=== PATIENT | male | born 1955 | race Caucasian/White ===

== ENCOUNTER 2016-11-07 09:51 | Emergency (ER) | payer BC ==
[2016-11-07] MEDS ORDERED: LABETALOL SYRINGE 5 MG/ML IVP STA ×2 (13:14→14:11)
--- NOTE | 2016-11-07 13:17 | ED ---
Recheck HPI - General Chief Complaint: Recheck/Abnormal Lab/Rx Stated Complaint: HTN Time Seen by Provider: 11/07/16 12:46 Source: patient, RN notes reviewed Mode of arrival: ambulatory Limitations: no limitations - History of Present Illness Initial Comments: Patient is a 61-year-old male to the emergency room for blood pressure recheck. Patient states he has a history of high blood pressure. Patient states he takes Cozaar 50 mg once a day. Patient states he did take his medication this morning. Patient states that he was getting his blood pressure retaken today at the clinic for a recheck. Patient states that his blood pressure was highly elevated so he was advised to go straight to the emergency room. Patient denies headache, changes in vision, dizziness, nausea, chest pain, shortness of breath. Patient states he was recently treated for pneumonia. Patient denies any cough or persisting symptoms from his pneumonia. - Related Data Home Medications Medication Instructions Recorded Confirmed Losartan [Cozaar] 50 mg PO DAILY 11/07/16 11/07/16 Allergies Allergy/AdvReac Type Severity Reaction Status Date / Time Penicillins Allergy Rash/Hives Verified 11/07/16 13:01 Review of Systems ROS Statement: Those systems with pertinent positive or pertinent negative responses have been documented in the HPI. ROS Other: All systems not noted in ROS Statement are negative. Past Medical History Past Medical History: Hypertension History of Any Multi-Drug Resistant Organisms: None Reported Past Surgical History: Orthopedic Surgery Additional Past Surgical History / Comment(s): knee Past Psychological History: No Psychological Hx Reported Smoking Status: Never smoker Past Alcohol Use History: Occasional Past Drug Use History: None Reported General Exam - General Exam Comments Initial Comments: Sitting in exam room in no acute distress. Limitations: no limitations General appearance: alert, in no apparent distress Head exam: Present: atraumatic, normocephalic, normal inspection Eye exam: Present: normal appearance ENT exam: Present: normal exam Neck exam: Present: normal inspection Respiratory exam: Present: normal lung sounds bilaterally. Absent: respiratory distress Cardiovascular Exam: Present: regular rate, normal rhythm, normal heart sounds Extremities exam: Present: normal inspection Back exam: Present: normal inspection Neurological exam: Present: alert, oriented X3, CN II-XII intact, normal gait Psychiatric exam: Present: normal affect, normal mood Skin exam: Present: warm, dry, intact, normal color. Absent: rash Course Vital Signs 11/07/16 11/07/16 11/07/16 10:20 13:18 14:09 Temperature 98.6 F Pulse Rate 93 78 74 Respiratory 16 18 18 Rate Blood Pressure 209/106 221/113 211/122 O2 Sat by Pulse 94 L 95 95 Oximetry 11/07/16 11/07/16 11/07/16 14:48 15:42 16:49 Temperature Pulse Rate 75 71 74 Respiratory 18 18 17 Rate Blood Pressure 204/129 186/117 190/110 O2 Sat by Pulse 97 100 Oximetry 11/07/16 17:22 Temperature 98.7 F Pulse Rate Respiratory Rate Blood Pressure O2 Sat by Pulse Oximetry Medical Decision Making - Medical Decision Making Patient is a 61-year-old male presents emergency room for evaluation of high blood pressure. Patient not complaining of any symptoms. Advised patient to increase his current blood pressure medications to twice a day. Advised patient to follow-up with his primary care provider tomorrow. Patient states he understands everything that was discussed with him. Return parameters discussed. Case discussed with Dr. Silverio. 11/07/16 15:06 Sinus rhythm with first-degree AV block with premature supraventricular complexes, ventricular rate 87 bpm, MS interval 232 ms, QRS duration 100 ms, QT/ QTc 432/519 ms Disposition Clinical Impression: Hypertension Disposition: HOME SELF-CARE Condition: Good Instructions: Hypertension (ED) Additional Instructions: Increase current blood pressure medications to twice a day. Please follow-up with primary care provider tomorrow. If any new symptom arises or symptoms worsen, return to ER as soon as possible. Referrals: None,Stated [Primary Care Provider] - 1-2 days Time of Disposition: 17:13
[2016-11-07] MEDS: hydrALAZINE HCL 20 MG/ML 1 ML VIAL IVP STA ×2 (14:58→15:57)
[2016-11-07 16:50] VITALS: BP 190/110; PULSE 74; RESP 17
[2016-11-07 17:22] VITALS: TEMP 98.7
== END 2016-11-07 17:22 | disposition home or self-care (01) ==
LOC: EC 09:51
DX: I10 Essential (primary) hypertension (principal); Z79.899 Other long term (current) drug therapy; Z88.0 Allergy status to penicillin
CPT/HCPCS: 93005; 99283; 96374; 96375; 96376; J0360